=== PATIENT | female | born 1995 | race Caucasian/White ===

== ENCOUNTER 2019-07-22 11:41 | Emergency (ER) | payer OTHER ==
[~2019-07-22] VITALS: Ht 160 cm; Wt 68.0 kg
[2019-07-22 12:46] LABS: Influenza A Positive (NEGATIVE); Influenza B Negative (NEGATIVE)
[2019-07-22] MEDS ORDERED: Mucinex1200 MG PO (13:09)
[2019-07-22] MEDS ORDERED: DEXT30SU PO (13:09)
[2019-07-22] MEDS ORDERED: ONDA4ODT MM (13:09)
== END 2019-07-22 13:21 | disposition home or self-care (01) ==
LOC: ER 11:41
PROVIDERS: Physician Assistant
DX: J10.1 Influenza due to other identified influenza virus with other respiratory manifestations (principal); Z79.899 Other long term (current) drug therapy
CPT/HCPCS: 87804; 99283

== ENCOUNTER 2023-05-05 16:39 | Inpatient (IN) | payer OTHER ==
[~2023-05-05] VITALS: Ht 162.6 cm; Wt 107.3 kg
[2023-05-05] VITALS (37 sets, daily range): BP systolic 83–141; BP diastolic 43–79
[~2023-05-05 16:39] MED LIST: ALBU90OI INH; CBD OIL TOP; DEXT30SU PO; Mucinex1200 MG PO; ONDA4ODT MM
[2023-05-05 18:23] LABS: BASOPHILS ABSOLUTE AUTO 0.03 K/mm3 (0.00-0.23); BASOPHILS PERCENT AUTO 0 % (0-2); EOSINOPHILS ABSOLUTE AUTO 0.08 K/mm3 (0.00-0.68); EOSINOPHILS PERCENT AUTO 1 % (0-6); Hematocrit 33.4 % (33.0-51.0); Hemoglobin 11.7 g/dL (11.5-16.0); IMMATURE GRAN ABSOLUTE AUTO 0.07 K/mm3 (0.00-0.10); IMMATURE GRAN PERCENT AUTO 1 % (0-1); LYMPHOCYTES ABSOLUTE AUTO 1.81 K/mm3 (0.84-5.20); LYMPHOCYTES PERCENT AUTO 12 % (21-46); MONOCYTES ABSOLUTE AUTO 1.06 K/mm3 (0.16-1.47); MONOCYTES PERCENT AUTO 7 % (4-13); Mean Corpuscular HGB 29.6 pg (26.0-34.0); Mean Corpuscular Volume 85 fL (80-100); Mean Platelet Volume 11.9 fL (9.1-12.4); NEUTROPHILS PERCENT AUTO 80 % (41-73); Platelet Count 224 K/mm3 (150-400); RDW Coefficient Variation 13.1 % (11.7-14.2); RDW Standard Deviation 40.4 fL (35.1-46.3); Red Blood Cell Count 3.95 M/mm3 (3.80-5.20); White Blood Cell Count 14.95 K/mm3 (4.00-11.30)
[2023-05-06] VITALS (33 sets, daily range): BP systolic 90–135; BP diastolic 44–75
[2023-05-07 05:28] VITALS: BP 128/85
[2023-05-07 06:35] LABS: Mean Corpuscular HGB 30.1 pg (26.0-34.0); Mean Corpuscular HGB Conc 34.5 g/dL (31.5-36.5); Mean Corpuscular Volume 87 fL (80-100); Mean Platelet Volume 11.6 fL (9.1-12.4); Platelet Count 227 K/mm3 (150-400); RDW Coefficient Variation 13.2 % (11.7-14.2); RDW Standard Deviation 41.3 fL (35.1-46.3); Red Blood Cell Count 3.32 M/mm3 (3.80-5.20)
[2023-05-07 08:13] VITALS: BP 142/89
[2023-05-07] MEDS ORDERED: PRENATAL TABLE1 EAC2 PO (10:25)
--- NOTE | 2023-05-07 10:58 | NUR ---
[facility]
== END 2023-05-07 11:00 | disposition home or self-care (01) | DRG 807 ==
LOC: BC 16:39 → OBS 16:39 → BC 16:40 → OBS 17:51 → BC 17:52
PROVIDERS: ADMIT Advanced Practice Midwife
PROC: 10E0XZZ Delivery of Products of Conception, External Approach (ICD-10-PCS; principal; 2023-05-06)
PROC: 3E033VJ Introduction of Other Hormone into Peripheral Vein, Percutaneous Approach (ICD-10-PCS; 2023-05-06)
PROC: 3E0R3BZ Introduction of Anesthetic Agent into Spinal Canal, Percutaneous Approach (ICD-10-PCS; 2023-05-06)
PROC: 00HU33Z Insertion of Infusion Device into Spinal Canal, Percutaneous Approach (ICD-10-PCS; 2023-05-06)
DX: O99.824 Streptococcus B carrier state complicating childbirth (principal); Z37.0 Single live birth; Z3A.38 38 weeks gestation of pregnancy; O99.324 Drug use complicating childbirth; F12.90 Cannabis use, unspecified, uncomplicated; O70.0 First degree perineal laceration during delivery; O77.0 Labor and delivery complicated by meconium in amniotic fluid
CPT/HCPCS: 36415; 51702; 59025; 85025; 85027; 86850; 86900; 86901; A9270; J0290; J1885; J2590; J3010; J7120

== ENCOUNTER 2024-09-11 06:07 | Day surgery (SDC) | payer OTHER ==
[~2024-09-11] VITALS: Ht 162.6 cm; Wt 81.5 kg
[~2024-09-11 06:07] MED LIST changes: +PRENATAL TABLE1 EAC2 PO
[2024-09-11 07:22] VITALS: BP 130/80
[2024-09-11] MEDS ORDERED: Lactated Ringer's 1,000 ML IV ONE (07:22)
--- NOTE | 2024-09-11 08:36 | NUR ---
09/11/[address] WONDERLY CANCELLED PROCEDURE D/T PT'S POSITIVE TEST.
== END 2024-09-11 07:30 | disposition home or self-care (01) ==
LOC: ORSCSDS 06:07
DX: R87.610 Atypical squamous cells of undetermined significance on cytologic smear of cervix (ASC-US) (principal); R87.810 Cervical high risk human papillomavirus (HPV) DNA test positive; Z53.9 Procedure and treatment not carried out, unspecified reason
CPT/HCPCS: 84702